=== PATIENT | female | born 1975 | race African-American/Black ===

== ENCOUNTER 2018-07-11 09:31 | Emergency (ER) | payer SELFPAY ==
[2018-07-11 09:47] VITALS: BP 134/72
--- NOTE | 2018-07-11 10:23 | RAD ---
INDICATION: Left shoulder injury. TECHNIQUE: 4 views of the left shoulder were obtained. FINDINGS: The bones are in normal alignment. No fracture is seen. Joint spaces appear maintained. IMPRESSION: NO EVIDENCE OF FRACTURE.
[2018-07-11] MEDS ORDERED: Ibuprofen TAB* 600 MG PO ONE (10:26)
--- NOTE | 2018-07-11 10:36 | UC ---
Shoulder Pain HPI - HPI Summary HPI Summary: 43-year-old woman comes in today with a chief complaint of left shoulder pain. Patient was at work when she was reaching for something had sudden onset of left shoulder pain. Pain is worse with range of motion of the shoulder. There is no shortness of breath. No weakness or numbness. No neck pain. There is no pain in the elbow wrist or fingers. No prior history of shoulder injury. Pain is mild at rest it becomes moderate with range of motion of the shoulder. - History of Current Complaint Chief Complaint: UCUpperExtremity Stated Complaint: SHOULDER INJURY Time Seen by Provider: 07/11/18 10:08 Hx Last Menstrual Period: 06/27/18 Pain Intensity: 6 - Allergies/Home Medications Allergies/Adverse Reactions: Allergies Allergy/AdvReac Type Severity Reaction Status Date / Time No Known Allergies Allergy Verified 07/11/18 09:39 Home Medications: Home Medications LORazepam [Ativan 1 MG TAB] 1 mg PO DAILY 07/11/18 [History Confirmed 07/11/18] Lurasidone(*) [Latuda] 40 mg PO DAILY 07/11/18 [History Confirmed 07/11/18] PMH/Surg Hx/FS Hx/Imm Hx Psychological History: Bipolar Disorder Other History Of: Negative For: HIV, Hepatitis B, Hepatitis C - Surgical History Surgical History: None - Family History Known Family History: Positive: Diabetes - Social History Alcohol Use: Occasionally Alcohol Amount: wine Substance Use Type: None Smoking Status (MU): Never Smoked Tobacco - Immunization History Most Recent Influenza Vaccination: season Vaccination Up to Date: Yes Review of Systems Constitutional: Negative Skin: Negative Eyes: Negative ENT: Negative Respiratory: Negative Cardiovascular: Negative Motor: Decreased ROM - Secondary to pain left shoulder Neurovascular: Negative Musculoskeletal: Other: - SEE HPI Neurological: Negative Psychological: Negative Is Patient Immunocompromised?: No All Other Systems Reviewed And Are Negative: Yes Physical Exam Triage Information Reviewed: Yes Appearance: Well-Appearing, Well-Nourished, Pain Distress - MILD WITH ROM OF LEFT SHOULDER Vital Signs: Initial Vital Signs Temp 98.2 F 07/11/18 09:42 Pulse 70 07/11/18 09:42 Resp 20 07/11/18 09:42 BP 134/72 07/11/18 09:42 Pulse Ox 100 07/11/18 09:42 Vital Signs Reviewed: Yes Eye Exam: Normal Neck exam: Normal Neck: Positive: Supple, Nontender Respiratory: Positive: Lungs clear, Normal breath sounds, No respiratory distress, No accessory muscle use Cardiovascular: Positive: RRR Musculoskeletal: Positive: Other: - Patient is tender to palpation on the left shoulder over the distal clavicle proximal deltoid and shoulder joint itself. Normal radial pulses and normal capillary refill both arms. Fingers and wrists elbows full range of motion full-strength. Neck is nontender to palpation. Shoulder flexion on the right is 110 on the left is 80. Abduction on the left is 80 on the right is 110. Internal rotation on the right is T 12 left is L5. Neurological Exam: Normal Neurological: Positive: Alert, Muscle Tone Normal Psychological Exam: Normal Psychological: Positive: Age Appropriate Behavior Skin Exam: Normal Shoulder Course/Dx - Course Course Of Treatment: Order Information: SHOULDER LEFT 2+ VWS. Accession Number : [id number]. CPT: 28037. INDICATION: Left shoulder injury. TECHNIQUE: 4 views of the left shoulder were obtained. FINDINGS: The bones are in normal alignment. No fracture is seen. Joint spaces appear. maintained. IMPRESSION: NO EVIDENCE OF FRACTURE. . <Electronically signed by Jh Paez MD in [facility]> 07/11/18 1020. I discussed the x-ray report with the patient. At this time we'll do rest continue range of motion do ice and anti-inflammatories. Have her out of work until July 19, 2018. Follow-up hER primary care doctor if not completely improved. - Differential Dx/Diagnosis Provider Diagnoses: LEFT SHOULDER PAIN Discharge - Sign-Out/Discharge Documenting (check all that apply): Patient Departure All imaging exams completed and their final reports reviewed: Yes - Discharge Plan Condition: Stable Disposition: HOME Patient Education Materials: Shoulder Pain (ED) Referrals: Gloria Marin MD [Primary Care Provider] - Additional Instructions: FOLLOW UP WITH YOUR DOCTOR THIS WEEK. GET RECHECKED FOR ANY WORSENING OF YOUR CONDITION OR QUESTIONS OR CONCERNS. - Billing Disposition and Condition Condition: STABLE Disposition: Home
== END 2018-07-11 11:00 | disposition home or self-care (01) ==
LOC: UCEAST 09:31
DX: M25.512 Pain in left shoulder (principal); F31.9 Bipolar disorder, unspecified; Z79.899 Other long term (current) drug therapy
CPT/HCPCS: 99212; A9270-GY; G0463